=== PATIENT | male | born 1975 | race Caucasian/White ===

== ENCOUNTER 2016-07-19 11:50 | Emergency (ER) | payer BC ==
[2016-07-19] MEDS ORDERED: Dexamethasone 4 mg/ml Vial ONE (12:11)
[2016-07-19] MEDS ORDERED: methylPREDNISolone Sod Succ/PF 125 MG/2 ML VIAL ONE (12:12)
[2016-07-19] MEDS ORDERED: methylPREDNISolone Acetate 40 mg/ml Vial ONE (12:14)
== END 2016-07-19 12:44 | disposition home or self-care (01) ==
LOC: BURERS 11:54
DX: T78.40XA Allergy, unspecified, initial encounter (principal); J45.909 Unspecified asthma, uncomplicated; F17.220 Nicotine dependence, chewing tobacco, uncomplicated; Z79.899 Other long term (current) drug therapy; X58.XXXA Exposure to other specified factors, initial encounter
CPT/HCPCS: 96372; J1030; J1100; J2930